=== PATIENT | female | born 1940 | race Caucasian/White ===

== ENCOUNTER 2019-02-13 14:31 | Inpatient (IN) | payer OTHER ==
[2019-02-13] VITALS (15 sets, daily range): BP systolic 78–167; BP diastolic 31–85
[~2019-02-13] VITALS: Ht 154.9 cm; Wt 44.1 kg
[2019-02-13 15:18] LABS: HEMOGLOBIN 11.5 gm/dL (12.0-15.0); MCHC 34.9 g/dL (28.0-37.0); PLATELET COUNT 280 thou/uL (150-400); RBC 3.83 mil/uL (4.20-5.00); RDW 12.8 % (10.5-14.5); WBC 20.6 thou/uL (4.0-11.0)
[2019-02-13 15:19] LABS: URINE BILIRUBIN NEGATIVE (Negative); URINE BLOOD 3+ (Negative); URINE CLARITY CLEAR; URINE COLOR YELLOW; URINE GLUCOSE-RANDOM* NEGATIVE (Negative); URINE KETONES TRACE (Negative); URINE LEUKOCYTES-REFLEX TRACE (Negative); URINE NITRITE-REFLEX NEGATIVE (Negative); URINE PROTEIN (DIPSTICK) 2+ (Negative); URINE SPECIFIC GRAVITY 1.025 (1.005-1.035)
[2019-02-13 15:28] LABS: BACTERIA-REFLEX >30 Many /HPF (None Seen); CASTS None Seen /LPF (None Seen); CRYSTALS None Seen /LPF (None Seen); SQUAMOUS 0-3 Few /LPF (0-3); URINE WBC-REFLEX 6-15 Few /HPF (0-5)
[2019-02-13 15:28] LABS: ANION GAP 14 mmol/L (7-16); BUN 47 mg/dL (7-18); CALCIUM 9.7 mg/dL (8.5-10.1); CHLORIDE 87 mmol/L (98-107); CO2 21 mmol/L (21-32); CREATININE 1.6 mg/dL (0.6-1.0); GLUCOSE 155 mg/dL (74-106); POTASSIUM 3.5 mmol/L (3.5-5.1); SODIUM 122 mmol/L (136-145)
[2019-02-13 15:36] LABS: TROPONIN-I <0.06 ng/mL (<0.06)
[2019-02-13 15:37] LABS: ABSOLUTE NEUTROPHILS 19.4 thou/uL (1.4-8.2); PLATELET ESTIMATE NORMAL
[2019-02-13 16:10] LABS: BE(vivo) -3.3 mmol/L (-2 to +3); HCO3 18.9 mmol/L (22.0-26.0); PCO2 26.3 mmHg (35.0-45.0); PO2 73.7 mmHg (80.0-100.0); pH 7.474 (7.360-7.450); sO2 95.9 % (92.0-98.0)
[2019-02-13 19:18] LABS: APTT 31.5 Seconds (24.5-32.8); PROTIME 10.1 Seconds (9.3-11.4)
[2019-02-13 19:19] LABS: ALBUMIN 3.4 g/dL (3.4-5.0); DIRECT BILIRUBIN 0.2 mg/dL (<0.1-0.3); TOTAL BILIRUBIN 0.7 mg/dL (<0.1-1.0); TOTAL PROTEIN 6.6 g/dL (6.4-8.2)
--- NOTE | 2019-02-13 19:19 | NUR ---
1821 IV ETOMIDATE/SUCCS GIVEN [address] GIRON ET TUBE 7.0, 24 @ TEETH 12FR OG PLACED 60 @ TEETH
[2019-02-13 20:10] LABS: BE(vivo) -12.4 mmol/L (-2 to +3); HCO3 14.2 mmol/L (22.0-26.0); PO2 143.6 mmHg (80.0-100.0); sO2 98.4 % (92.0-98.0)
[2019-02-13 20:11] LABS: pH 7.227 (7.360-7.450)
--- NOTE | 2019-02-13 20:20 | NUR ---
ADMIT NOTE: Pt admitted to ICU room 246 at [address] of head done. Pt intubated with 7.0 ET tube, 24 cm @ lip, vent settings Tv 450, 40% FiO2, AC 14 and peep 5. ABG's done on arrival, critical results called to Dr. Florian at 2015 and orders recieved to increase AC to 16. Pt sedated, pupils 3 and brisk. Soft wrist restraints in place bilaterally. Per report pt was brought into the ED very confused, aggitated and combative. OG @ 62 cm to LIS with dark coffee colored drainage. Same drainage also noted from Hi-Lo tube. Monitor sinus rhythm. Torres patent with adequate urine output.
[2019-02-13 21:23] LABS: AMP/METHAMP Negative (Negative); BARBITURATES Negative (Negative); BENZODIAZEPINES Negative (Negative); COCAINE Negative (Negative); METHADONE Negative (Negative); OPIATES Negative (Negative); PCP Negative (Negative)
[2019-02-14] VITALS (37 sets, daily range): BP systolic 73–136; BP diastolic 27–67
--- NOTE | 2019-02-14 05:46 | NUR ---
Pt has remained stable overnight. Low BP is Propofol related. Propofol titrated down to 8 mcg/kg/min. O2 sat remains 98-100% on FiO2 40%. Urine output adequate. On sedation vacation pt is able to open eyes spontaneously, ELAM but not to command, able to raise head and neck off pillow. Monitor remains sinus rhythm. Urine output > 30 cc/hr. Skin integrity remains intact.
[2019-02-14 06:28] LABS: ALBUMIN 2.2 g/dL (3.4-5.0); TOTAL BILIRUBIN 0.3 mg/dL (<0.1-1.0); TOTAL PROTEIN 4.8 g/dL (6.4-8.2)
[2019-02-14 06:30] LABS: CALCIUM 7.4 mg/dL (8.5-10.1)
[2019-02-14 06:32] LABS: POTASSIUM 2.2 mmol/L (3.5-5.1)
[2019-02-14 07:15] LABS: BE(vivo) -3.6 mmol/L (-2 to +3); HCO3 20.1 mmol/L (22.0-26.0); PCO2 31.8 mmHg (35.0-45.0); PO2 170.3 mmHg (80.0-100.0); pH 7.419 (7.360-7.450); sO2 99.2 % (92.0-98.0)
--- NOTE | 2019-02-14 08:54 | EKG ---
[address] [address] ELECTROCARDIOGRAM REPORT Name: CHUCKY WILSON Room #: 246-P ADM IN M.R.#: [id number] ������������������ Admission: 02/13/19 ������������������ Attend Phys: Nathaniel Jessica MD Discharge: ������������������ Date of : 44 Report #: [id number] ����������������������������������������������������������������� [id number] THIS REPORT FOR: //name// [facility] ED Test Date: 2019-02-13 Test Time: 17:11:00 Pat Name: CHUCKY WILSON Department: Room: 246 Gender: F Development Engineer: jltano : 1940 Requested By: Javi Blake Order Number: [id number] MD: Kirit Sher Measurements Intervals [place] Rate: 107 P: 37 ME: 188 QRS: 11 QRSD: 95 T: 82 QT: 332 QTc: 443 Interpretive Statements Sinus tachycardia Otherwise no significant abnormality Baseline wander in lead(s) V2 No previous ECG available for comparison Electronically Signed On 02-14-2019 8:53:57 CDT by Kirit Sher [email or web address] ��������������������������������������������� <ELECTRONICALLY SIGNED> ���������������������������������������� By: Kirit Sher MD, [facility] ��������������������������������������������� 02/14/19 0853 10 10 Kirit Sher MD, [facility] /EPI
--- NOTE | 2019-02-14 08:57 | NUR ---
0730- IN.--VW 0857-REPEAT PCXR DONE.--VW
[2019-02-14 09:44] LABS: ABSOLUTE NEUTROPHILS 10.6 thou/uL (1.4-8.2); BASOPHILS 0.3 % (0.0-2.0); EOSINOPHILS 1.1 % (0.0-3.0); HEMATOCRIT 28.8 % (37.0-47.0); HEMOGLOBIN 9.6 gm/dL (12.0-15.0); LYMPHOCYTES 3.2 % (24.0-44.0); MCHC 33.5 g/dL (28.0-37.0); MCV 89.5 fL (80.0-100.0); PLATELET COUNT 213 thou/uL (150-400); POLYS 87.4 % (36.0-66.0); RBC 3.22 mil/uL (4.20-5.00); RDW 13.1 % (10.5-14.5); WBC 12.1 thou/uL (4.0-11.0)
[2019-02-14 09:53] LABS: APTT 26.1 Seconds (24.5-32.8); FIBRINOGEN 547.9 mg/dL (210-360); PROTIME 10.5 Seconds (9.3-11.4)
--- NOTE | 2019-02-14 12:46 | NUR ---
1130-TO ARIANNA LOVETT I.R. W I.R.CREW,FULLY MONITORED.HOB REMAINS FLAT BUT TAKEN OUT OF HALLE.--VW
[2019-02-14 13:19] LABS: CSF COLOR SLIGHTLY PINK; VOLUME 12 ml
[2019-02-14 13:20] LABS: CSF CLARITY CLEAR
[2019-02-14 13:25] LABS: CSF GLUCOSE 63 mg/dL (40-70); CSF PROTEIN 122 mg/dL (15-45)
[2019-02-14 13:47] LABS: CSF RBC 841 /mm3; CSF WBC 2 /mm3 (0-10)
--- NOTE | 2019-02-14 15:45 | NUR ---
1330-BACK FROM PROCEDURES.--VW 1500-IV THERAPY IN.--VW 1550-PAGE TO IV THERAPY RE:PCXR RESULT.--VW
--- NOTE | 2019-02-14 16:18 | NUR ---
INITIAL ASSESSMENT: PAULA reviewed chart and spoke with nursing and attending physician. Pt was brought in by EMS after being found down in her home by a neighbor, Kylah. Pt is currently intubated and sedated. PAULA spoke with pt's son, Chaparro ([phone]) via phone. Introduced role of PAULA. Chaparro lives in [place] and his brother, Dmitri, lives in [place]. Chaparro states that his relationship with pt has been estranged for the past 10 years. Pt with hx of OCD. 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 Per Chaparro, pt left the employer on bad terms and then had a mental breakdown. Pt has poor living conditions per Chaparro, and pt is unable to allow anyone into her home to clean or to help her. Pt has never completed DPOA ppwk. Pt's son is unaware of pt's financial situation. Pt does have about 10 rental homes. Pt's neighbor visits pt daily. Chaparro is unsure of pt's physical ability prior to admission. He will contact Kylah to obtain more info and find out the condition of pt's home. Chaparro will be flying to this weekend and will be avialable to assist as needed with discharge planning. PAULA is following to assist as needed.
--- NOTE | 2019-02-14 17:36 | NUR ---
CONSULTED TO PLACE A PICC FOR A PATIENT IN ICU, SEDATED AND UNABLE TO CONSENT. NO FAMILY OR DPOA. DR. KIM WROTE FOR MEDICAL NECESSITY. THE RIGHT UPPER ARM BASILIC WAS WIDLEY PATENT. A #5F TRIPLE LUMEN POWER PICC WAS PLACED AFTER A BEDSIDE TIMEOUT WAS COMPLETED. LINE TRIMMED TO 34CM AND ADVANCED WITHOUT DIFFICULTY- A STAT CHEST XRAY SHOWS LINE IN THE RIGHT JUGULAR AND MALPOSITIONED. UNABLE TO POWER FLUSH TO REPOSITION LINE. THE LEFT UPPER ARM BASILIC WAS WIDLEY PATENT. A #5F TRIPLE LUMEN POWER PICC WAS PLACED PER HOSPITAL POLICY TO REPLACE MALPOSITIONED LINE. LINE WAS TRIMMED TO 38CM AND ADVANCED WITHOUT DIFFICULTY. A STAT CHEST XRAY SHOWS LINE IN SVC AND RELEASED FOR USE. THE RIGHT MALPOSITIONED LINE WAS REMOVED AND PRESSURE HELP FOR 10MN
[2019-02-14 18:48] LABS: MAGNESIUM 2.5 mg/dL (1.8-2.4)
[2019-02-14 18:50] LABS: POTASSIUM 2.4 mmol/L (3.5-5.1)
--- NOTE | 2019-02-14 20:33 | NUR ---
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
[2019-02-15] VITALS (47 sets, daily range): BP systolic 66–169; BP diastolic 35–85
[2019-02-15 05:29] LABS: HEMOGLOBIN 8.3 gm/dL (12.0-15.0); MCHC 34.5 g/dL (28.0-37.0); PLATELET COUNT 196 thou/uL (150-400); RBC 2.76 mil/uL (4.20-5.00); RDW 13.1 % (10.5-14.5); WBC 8.3 thou/uL (4.0-11.0)
[2019-02-15 06:02] LABS: ALBUMIN 1.8 g/dL (3.4-5.0); CALCIUM 8.1 mg/dL (8.5-10.1); POTASSIUM 3.3 mmol/L (3.5-5.1); TOTAL BILIRUBIN 0.2 mg/dL (<0.1-1.0); TOTAL PROTEIN 4.8 g/dL (6.4-8.2)
[2019-02-15 08:24] LABS: ABSOLUTE NEUTROPHILS 6.4 thou/uL (1.4-8.2)
--- NOTE | 2019-02-15 09:04 | NUR ---
Recommend consider start enteral nutrition of Vital High Protein at 25ml/hr and goal of 45ml/hr. Defer fluid/water flushes to physician.
--- NOTE | 2019-02-15 09:30 | NUR ---
Pt taken to radiology via bed for CT/CTA of head and neck. Propofol gtt continued during the procedure. Pt calm and tolerated well. Returned to the ICU. RT present for the transport to and from radiology.
--- NOTE | 2019-02-15 14:30 | NUR ---
Pt remains light
--- NOTE | 2019-02-15 15:00 | NUR ---
Pt remains lightly sedated with Propofol. Pt tranported to MRI for MRI of head. Maintained on the portable vent for the procedure by RT. Returned to ICU following the test.
--- NOTE | 2019-02-15 15:49 | NUR ---
SW reviewed chart and spoke with attending physician. Pt remains intubated and sedated. Pt on IV abx. Per nursing, pt's son to be in town on Monday. SW left voice message for pt's son, Chaparro, to provide update. No weekend discharge planned. Pt will need therapy evals when extubated and able to participate. PAULA is following to assist as needed with discharge planning.
--- NOTE | 2019-02-15 17:30 | NUR ---
Contacted Dr Jessica regarding test results from today. Dr Jessica will review the results and make any necessary orders.
--- NOTE | 2019-02-15 19:00 | NUR ---
Report given to RN assuming care. Awaiting dose of Plavis to arrive from pharmacy. Have discussed with pharmacist and guitar repair technician. Pt is resting quietly. Son called today and will travel from [place] on Monday to visit with his Mom.
[2019-02-16] VITALS (36 sets, daily range): BP systolic 93–166; BP diastolic 48–88
--- NOTE | 2019-02-16 01:08 | NUR ---
PATIENT IS SEDATED WITH MEDICATION DRIP. PATIENT HAS SPONTANEOUS EYE OPENING. PUPILS ARE EQUAL AND REACTIVE, REFLEXES INTACT. PATIENT IS INTUBATED ON THE VENT. PENDING HEAD CT TODAY. NEUROLOGY CONSULTED. PATIENT HAS NOT HAD A BM. PATIENT IS NPO. TUBE FEED STARTED THIS SHIFT PER DIETARY VIA OG TUBE. PATIENT TOLERATING TUBE FEED NO RESIDUALS NOTED THIS SHIFT. PATIENT HAS A SHINE WITH GOOD OUT PUT PATIENT IS NSR ON TELE. BP HAS BEEN STABLE. PATIENT IS 100% ON VENT TV 450 FIO2 30% AC 12 PEEP 5. PATIENT IS Q2TURN. RESTING COMFORTABLY. PATIENT ABLE TO ANSWER "YES AND NO" QUESTIONS. PATIENT DENIES PAIN. PATIENT IS PROGRESSING TO GOALS. C.
[2019-02-16 04:44] LABS: ABSOLUTE NEUTROPHILS 4.1 thou/uL (1.4-8.2); BASOPHILS 0.4 % (0.0-2.0); EOSINOPHILS 5.8 % (0.0-3.0); HEMATOCRIT 23.2 % (37.0-47.0); LYMPHOCYTES 8.2 % (24.0-44.0); MCH 30.3 pg (26.0-34.0); MCHC 34.5 g/dL (28.0-37.0); MCV 87.8 fL (80.0-100.0); MONOCYTES 10.6 % (1.0-8.0); PLATELET COUNT 193 thou/uL (150-400); RBC 2.64 mil/uL (4.20-5.00); RDW 13.3 % (10.5-14.5); WBC 5.5 thou/uL (4.0-11.0)
[2019-02-16 04:55] LABS: CALCIUM 7.9 mg/dL (8.5-10.1); CREATININE 0.9 mg/dL (0.6-1.0); POTASSIUM 3.1 mmol/L (3.5-5.1)
[2019-02-16 10:04] LABS: BE(vivo) -0.9 mmol/L (-2 to +3); HCO3 22.1 mmol/L (22.0-26.0); PCO2 30.1 mmHg (35.0-45.0); PO2 132.9 mmHg (80.0-100.0); pH 7.483 (7.360-7.450); sO2 98.9 % (92.0-98.0)
--- NOTE | 2019-02-16 12:47 | NUR ---
ASSUMED CARE OF PT AT 0700 THIS SHIFT. PT HAS BEEN FOLLOWING COMMANDS, HAS DENIED ANY PAIN THIS SHIFT. PT IS STILL INTUBATED AND SEDATED, HOWEVER WAKES EASILY AND ABLE TO NOD HEAD YES OR NO TO QUESTIONS. C-PAP TRIAL TODAY. PT IS CURRENTLY RESTING COMFORTABLY IN ROOM.
[2019-02-17] VITALS (46 sets, daily range): BP systolic 101–182; BP diastolic 50–108
[2019-02-17 05:19] LABS: BE(vivo) 0.4 mmol/L (-2 to +3); HCO3 24.1 mmol/L (22.0-26.0); PCO2 34.8 mmHg (35.0-45.0); PO2 117.4 mmHg (80.0-100.0); pH 7.458 (7.360-7.450); sO2 98.5 % (92.0-98.0)
[2019-02-17 05:39] LABS: ABSOLUTE NEUTROPHILS 3.4 thou/uL (1.4-8.2); BASOPHILS 0.6 % (0.0-2.0); EOSINOPHILS 5.7 % (0.0-3.0); HEMATOCRIT 23.4 % (37.0-47.0); LYMPHOCYTES 13.3 % (24.0-44.0); MCH 29.8 pg (26.0-34.0); MCV 87.8 fL (80.0-100.0); MONOCYTES 10.2 % (1.0-8.0); PLATELET COUNT 188 thou/uL (150-400); POLYS 70.2 % (36.0-66.0); RBC 2.67 mil/uL (4.20-5.00); RDW 13.6 % (10.5-14.5); WBC 4.8 thou/uL (4.0-11.0)
[2019-02-17 05:57] LABS: ALBUMIN 1.8 g/dL (3.4-5.0); ANION GAP 9 mmol/L (7-16); BUN 20 mg/dL (7-18); CALCIUM 7.7 mg/dL (8.5-10.1); CHLORIDE 110 mmol/L (98-107); CO2 26 mmol/L (21-32); CREATININE 0.7 mg/dL (0.6-1.0); GLUCOSE 145 mg/dL (74-106); POTASSIUM 3.1 mmol/L (3.5-5.1); SGOT 15 U/L (15-37); SGPT 23 U/L (30-65); SODIUM 145 mmol/L (136-145); TOTAL BILIRUBIN < 0.1 mg/dL (<0.1-1.0); TOTAL PROTEIN 4.8 g/dL (6.4-8.2)
--- NOTE | 2019-02-17 06:41 | NUR ---
No changes or events over night. Monitor remains sinus rhythm. Potassium being replaced per protocol.
[2019-02-17 10:43] LABS: BE(vivo) 1.7 mmol/L (-2 to +3); HCO3 25.6 mmol/L (22.0-26.0); PCO2 37.1 mmHg (35.0-45.0); PO2 129.6 mmHg (80.0-100.0); pH 7.456 (7.360-7.450); sO2 98.7 % (92.0-98.0)
--- NOTE | 2019-02-17 19:48 | NUR ---
Per Spencer RT checking on pt. RT reported that she had more inspiratory wheezes and placed pt on face mask at 10L. Dr. Florian paged and return call back to talk to RT and RN. RN received orders for solumedrol 40mg IVP BID. pt labored breathning with inspiration but o2sat 96% and higher. continue to monitor.
[2019-02-17 21:00] LABS: BE(vivo) 0.5 mmol/L (-2 to +3); HCO3 25.3 mmol/L (22.0-26.0); PCO2 41.6 mmHg (35.0-45.0); PO2 80.4 mmHg (80.0-100.0); pH 7.402 (7.360-7.450); sO2 95.9 % (92.0-98.0)
[2019-02-18] VITALS (33 sets, daily range): BP systolic 93–175; BP diastolic 59–98
[2019-02-18 05:42] LABS: HEMATOCRIT 27.5 % (37.0-47.0); HEMOGLOBIN 9.5 gm/dL (12.0-15.0); MCHC 34.4 g/dL (28.0-37.0); MCV 87.2 fL (80.0-100.0); RBC 3.16 mil/uL (4.20-5.00); RDW 13.5 % (10.5-14.5); WBC 6.8 thou/uL (4.0-11.0)
[2019-02-18 06:01] LABS: CALCIUM 7.8 mg/dL (8.5-10.1); CREATININE 0.6 mg/dL (0.6-1.0); POTASSIUM 3.3 mmol/L (3.5-5.1)
--- NOTE | 2019-02-18 11:08 | 2DMMODE ---
[facility] [place] [address] 2 D/M-MODE ECHOCARDIOGRAM Name: CHUCKY WILSON Room #: 246-P ADM IN M.R.#: [id number] ������������� Admission: 02/13/19 ������������� Attend Phys: Nathaniel Jessica MD Discharge: ��� ������������� ��� Date of : 44 Date of Service: 02/18/19 1108 �� Report #: [id number] �������� ��������������������������������������������[id number] THIS REPORT FOR: //name// APPROVED REPORT Study performed: 02/18/2019 09:14:32 EXAM: Comprehensive 2D, Doppler, and color-flow Echocardiogram Patient Location: ICU Room #: [facility] Status: routine BSA: 1.37 HR: 89 bpm BP: 157/88 mmHg Rhythm: NSR Other Information Study Quality: Adequate Indications Dyspnea Hypertension/HDD 2D Dimensions IVC: 16.00 mm Volumes Left Atrial Volume (Systole) LA ESV Index: 20.00 mL/m2 Tricuspid Valve PA Pressure: 31.00 mmHg Left Ventricle The left ventricle is normal size. There is normal LV segmental wall motion. There is normal left ventricular wall thickness. The left ventricular systolic function is normal. The left ventricular ejection fraction is within the normal range. LVEF is 60-65%. Grade I - abnormal relaxation pattern. Right Ventricle The right ventricle is normal size. The right ventricular systolic function is normal. [facility] [address] [place] [address] 2 D/M-MODE ECHOCARDIOGRAM Name: CHUCKY WILSON Room #: 246-P ADM IN M.R.#: [id number] ������������� Admission: 02/13/19 ������������� Attend Phys: Nathaniel Jessica MD Discharge: ��� ������������� ��� Date of : 44 Date of Service: 02/18/19 1108 �� Report #: [id number] �������� ��������������������������������������������[id number] The left atrium size is normal. The right atrium size is normal. Aortic Valve The aortic valve is normal in structure. Trace to mild aortic regurgitation. There is no aortic valvular stenosis. Mitral Valve The mitral valve is normal in structure. Mild mitral regurgitation. No evidence of mitral valve stenosis. Tricuspid Valve The tricuspid valve is normal in structure. There is trace to mild tricuspid regurgitation. Estimated PAP 31 mmHg There is mild pulmonary hypertension. Pulmonic Valve The pulmonary valve is normal in structure. There is no pulmonic valvular regurgitation. Great Vessels The aortic root is normal in size. IVC is normal in size and collapses >50% with inspiration. <Conclusion> The left ventricle is normal size. LVEF is 60-65%. The left atrium size is normal. The aortic valve is normal in structure. Trace to mild aortic regurgitation. The mitral valve is normal in structure. Mild mitral regurgitation. The tricuspid valve is normal in structure. There is trace to mild tricuspid regurgitation. Estimated PAP 31 mmHg There is mild pulmonary hypertension. The pulmonary valve is normal in structure. ��������������������������������������������� <ELECTRONICALLY SIGNED> ���������������������������������������� By: Alebr Huang MD ��������������������������������������������� 02/18/19 1108 1108 1108 Alber Huang MD /INF
--- NOTE | 2019-02-18 13:58 | NUR ---
PAULA reviewed chart and spoke with nursing and attending physician. Pt was extubated yesterday and is tolerating O2 via NC. Therapies ordered to evaluate pt for discharge needs. PAULA met with pt's son, Chaparro, at bedside to discuss discharge plan. Pt was asleep during time of SW visit. Pt's son is in town from [place] until tomorrow. Pt's son had questions about completing DPOA ppwk. PAULA explained that [facility] can provide the Healthcare DPOA document, but cannot provide assistance with financial DPOA ppwk. Pt's son's cousin is an commonwealth attorney and is bringing in DPOA ppwk. Pt's son requests notary services. PAULA discussed with Director of Case Mgmt, who says that staff is not able to notarize financial documents. Director of Case Mgmt spoke with pt's son to explain and to ask commonwealth attorney to bring in a notary. Awaiting therapy evals at this time. PAULA provided in-network SNF list for pt and son to review. Will need insurance authorization for post-acute placement. PAULA is following to assist as needed with discharge planning.
[2019-02-18 16:33] LABS: MAGNESIUM 2.8 mg/dL (1.8-2.4); POTASSIUM 3.7 mmol/L (3.5-5.1)
--- NOTE | 2019-02-18 19:16 | NUR ---
ASSUMED CARE @ 0700 02/18/19, PT ASSESSMENTS AND VSS COMPLETE PER ICU PROTOCOL. SPEECH EVALUATION PERFORMED TODAY, PUREED DIET ORDERED. SON, ENE @ BEDSIDE TODAY, EVERYTIME RN WENT INTO THE ROOM, SON WAS CONSTANTLY TALKING TO PT ABOUT SIGNING FINANCIAL DOCUMENTS. I REFUSED TO WITNESS ANY DOCUMENTS WHEN THE NOTARY WAS AT HER BEDSIDE BECAUSE I DID NOT FEEL COMFORTABLY WITNESSING.
[2019-02-19] VITALS (24 sets, daily range): BP systolic 99–182; BP diastolic 58–97
--- NOTE | 2019-02-19 05:06 | NUR ---
BP elevated, gave hydralazine as order.
[2019-02-19 05:11] LABS: HEMATOCRIT 29.9 % (37.0-47.0); HEMOGLOBIN 10.1 gm/dL (12.0-15.0); MCH 29.8 pg (26.0-34.0); MCHC 33.7 g/dL (28.0-37.0); MCV 88.2 fL (80.0-100.0); RBC 3.39 mil/uL (4.20-5.00); RDW 13.3 % (10.5-14.5); WBC 10.9 thou/uL (4.0-11.0)
[2019-02-19 05:26] LABS: CALCIUM 8.5 mg/dL (8.5-10.1); CREATININE 0.7 mg/dL (0.6-1.0)
[2019-02-19 09:08] LABS: CHOLESTEROL 270 mg/dL (<200); HDL CHOLESTEROL 28 mg/dL (>40); LDL CHOLESTEROL 222 mg/dL (<100); TC:HDL 9.6 Ratio (Not establshd); TRIGLYCERIDE 104 mg/dL (<150); VLDL 21 mg/dL (<40)
--- NOTE | 2019-02-19 16:29 | NUR ---
PAULA reviewed chart and spoke with nursing and attending physician. Pt remains in ICU. PAULA met with pt and son, Chaparro, at bedside to discuss discharge plan. Reviewed SNF list with pt and son. [facility] is not in-network with pt's insurance. Pt's son requests referrals to be sent to [facility]. SW explained process for referral and discharge. Pt's son is leaving [facility] this evening, and will be back in next week. Pt's son states that he did get the DPOA ppwk signed and notarized yesterday. Pt's son will email SW copy of paperwork to place on pt's chart and send to accepting facility. Per medical record, psych consult ordered today to evaluate pt's competency. Pt's son requests to be contacted by psych at time of evaluation. SW notified psychiatrist of request. Referral faxed to [facility]. Will need insurance authorization when pt is ready for discharge. Pt may transfer out of ICU tomorrow. PAULA is following to assist as needed with discharge planning.
--- NOTE | 2019-02-19 17:16 | NUR ---
PT IS ALERT AND ORIENTED X4. LUNGS ARE DIMINISHED. ON ROOM AIR . BLOOD PRESSURE WAS HIGH. PT APPEARS ANXIOUS. AFTER SON WAS VISITING TODAY. VERY COEERCIVE IN PT FINANCES. AND MONEY. SINUS RHYTHM TO SINUS TACH ON THE MONITOR. PT RESTING NOW. ON HONEY THICKEN LIQUIDS TODAY. SHINE TO DD WITH CRISTIAN CABRERA PRESENT. PT STABLE WILL CONTINUE TO MONITOR AND ASSESS. MANAGER COMPLIANCE INVOLVED WITH PT STAUTS AT THIS TIME WITH HOSPITALIZATION.
--- NOTE | 2019-02-19 18:56 | NUR ---
IS HERE TO EVALUATE PT.
--- NOTE | 2019-02-19 19:43 | NUR ---
SPOKE WITH [facility] PHARMACIST REGARDING OF PT'S CURRENT MEDICATIONS. THEY WILL FAX CURRENT MEDS TO ME SHORTLY.
[2019-02-20] VITALS (22 sets, daily range): BP systolic 118–176; BP diastolic 64–105
[2019-02-20 05:15] LABS: HEMATOCRIT 29.8 % (37.0-47.0); MCH 29.4 pg (26.0-34.0); MCHC 33.6 g/dL (28.0-37.0); MCV 87.4 fL (80.0-100.0); RBC 3.41 mil/uL (4.20-5.00); RDW 13.3 % (10.5-14.5); WBC 9.8 thou/uL (4.0-11.0)
[2019-02-20 05:27] LABS: CALCIUM 8.7 mg/dL (8.5-10.1); CREATININE 0.6 mg/dL (0.6-1.0); MAGNESIUM 1.7 mg/dL (1.8-2.4); POTASSIUM 3.6 mmol/L (3.5-5.1)
--- NOTE | 2019-02-20 06:37 | NUR ---
Pt remains stable in this shift. No event tonight. Magnesium level is low this am. I am replacing it per protocol. She is continue progressing toward POCs.
--- NOTE | 2019-02-20 10:24 | NUR ---
Referal faxed to [facility] in couple of days. DP called and left vm with Mily at [facility] to see if she received referral and check on bed availability.
--- NOTE | 2019-02-20 16:46 | NUR ---
PAULA reviewed chart and spoke with attending physician. Pt is progressing towards goals for discharge. Pt will need to go to post-acute care when discharged. [facility] able [facility] pt. Awaiting input from [facility] at this time. [facility] did an onsite evaluation earlier today. Will need insurance authorization for pt to go to post-acute. PAULA spoke with pt's son via phone to provide update. Pt's son to discuss with his brother this evening. PAULA is following to assist as needed with discharge planning.
--- NOTE | 2019-02-20 18:10 | NUR ---
PATIENT WILL HAVE A LOOP DEVICE PLACED IN AM. WILL BE DISCHARGED IN AM TO HOME AFTER PROCEDURE. HE DENIES PAIN. RESPIRATIONS ARE NON LABORED. PLEASANT WITH CARE. DOES NOT SEEM TO BE IN PAIN AT THIS TIME. WILL CONT WITH PLAN OF CARE.
--- NOTE | 2019-02-21 03:46 | NUR ---
patient is alert and oriented. patient is very forgetful. patient showered. patient deneis pain. patient has a long hx of arthritis and has sever joint deformity. patient is on pureed and honey thick liquids. patient is nsr on tele. patient is resting comfortably in bed. wcm. patient is room air. patient is prgressing to goals. plan is to finish iv antibiotics and narcisa steriods.
[2019-02-21 04:20] VITALS: BP 141/79
[2019-02-21 05:43] LABS: HEMATOCRIT 29.6 % (37.0-47.0); HEMOGLOBIN 9.8 gm/dL (12.0-15.0); MCH 29.3 pg (26.0-34.0); MCV 88.8 fL (80.0-100.0); RBC 3.33 mil/uL (4.20-5.00); RDW 13.1 % (10.5-14.5); WBC 14.4 thou/uL (4.0-11.0)
[2019-02-21 06:18] LABS: CALCIUM 8.4 mg/dL (8.5-10.1); CREATININE 0.7 mg/dL (0.6-1.0); MAGNESIUM 1.8 mg/dL (1.8-2.4); POTASSIUM 3.5 mmol/L (3.5-5.1)
[2019-02-21 12:15] VITALS: BP 132/80
--- NOTE | 2019-02-21 13:19 | NUR ---
PAULA reviewed chart and spoke with nursing and attending physician. Pt was transferred to from ICU and is progressing towards goals for discharge. PAULA spoke with pt's son, Chaparro, via phone regarding post-acute needs. Pt's son has chosen [facility]. PAULA updated [facility] liaison. PAULA requested updated therapy notes to sent to [facility], in order to get insurance authorization. Pt to move to room 364 from 448 today. PAULA is following to assist as needed with discharge planning.
[2019-02-21 16:48] VITALS: BP 119/63
[2019-02-21 20:30] VITALS: BP 131/88
[2019-02-22 04:49] VITALS: BP 140/79
--- NOTE | 2019-02-22 05:20 | NUR ---
PT MAKING SLOW PROGRESS TOWARDS GOALS. PT UP X1-2 ASSIST TO TOILET. PT ABLE TO BEAR HER OWN WEIGHT BUT HAD WEAKNESS WITH TRANSFERING FROM LYING TO SITTING AND SITTING WITH STANDING.
[2019-02-22 07:31] VITALS: BP 148/99
[2019-02-22] MEDS ORDERED: CLOPIDOGREL75 MG PER TUBE (12:11)
[2019-02-22] MEDS ORDERED: PANTOPRAZOLE SO40 M1 PO (12:11)
[2019-02-22] MEDS ORDERED: LIPITOR40 MG PO (12:11)
[2019-02-22] MEDS ORDERED: ADULT LOW DOSE81 MG PO (12:11)
[2019-02-22] MEDS ORDERED: CEFUROXIME500 MG PO (12:11)
[2019-02-22] MEDS ORDERED: IPRAT-ALBUT 0.5-3 ML INH (12:11)
[2019-02-22] MEDS ORDERED: LOPRESSOR50 PO (12:11)
[2019-02-22] MEDS ORDERED: PREDNISONE 20 M20 MG PO (12:11)
[2019-02-22] MEDS ORDERED: FELODIPINE 5 MG5 M1 PER TUBE (12:11)
--- NOTE | 2019-02-22 14:02 | NUR ---
DISCHARGE PLANNING. ANTICIPATED DISCHARGE TODAY. PATIENT DISCHARGING TO [facility]. INSURANCE AUTH PENDING. OT NOTES FAXED TO [facility]MISS[facility], FOR INSURANCE AUTH PROCESS. PT ASSESSEMENT PENDING. DISCHARGE ORDERS AND SUMMARY FAXED TO [facility], VERIFIED RECEIVED. CHART COPY COMPLETED PER BLOOD BANK WORKER. AWAITING RESPONSE ON INSURANCE AUTH FROM [facility]. [facility] TO FACILITATE TRANSPORTATION ONCE OBTAINED. FOLLOWING TO ASSIST. UNIT SW AWARE.
--- NOTE | 2019-02-22 16:34 | NUR ---
PAULA reviewed chart and spoke with nursing and attending physician. Awaiting insurance authorization at this time for pt to go to [facility]. PAULA spoke with pt's son, Chaparro, via phone to provide update. PAULA explained that pt could d/c over the weekend if insurance authorization is obtained. Pt's son agreeable. DPOA ppwk placed on pt's chart and faxed to [facility]. Will need chart copy. Discharge orders/summary will need to be faxed when pt is discharged. PAULA is following to assist as needed with discharge planning. [facility]--
[2019-02-22 16:39] VITALS: BP 114/73
--- NOTE | 2019-02-22 18:01 | NUR ---
ASSUMED CARE OF PATIENT AT 0700. PATIENT ALERT AND ORIENTED. PATIENT 2 PERSON ASSIST. PATIENT DIET CHANGED TO MECHINICALLY ALTERED W/ THIN LIQUIDS AFTER SWALLOW STUDY TODAY. PATIENT HAS TOLERATED IT WELL. PATIENT DISCHARGE PENDING INSURANCE VERIFICATION.
[2019-02-22 19:41] VITALS: BP 153/84
[2019-02-23 04:09] VITALS: BP 161/84
[2019-02-23 07:36] VITALS: BP 122/76
[2019-02-23 16:17] VITALS: BP 112/70
--- NOTE | 2019-02-23 20:01 | NUR ---
PATIENT ALERT AND ORIENTED AND SOMETIMES DEMANDING OF STAFF. PER ANDREW AT [facility], PATIENT INSURANCE APPROVED BUT NO BED AVAILABLE AND WILL CHECK AGAIN TOMORROW. PATIENT STATES SHE LIKES IT HERE. RICHI IN INDICATED NEED TO FAX DISCHARGE ORDERS TO [facility] WHEN BED AVAILABLE AND CALL REPORT. IF [facility] CAN'T TRANSPORT THEN ARRANGE W/C TRANSPORT WITH [facility].
[2019-02-23 21:02] VITALS: BP 110/68
[2019-02-24 05:08] VITALS: BP 147/87
[2019-02-24 08:20] VITALS: BP 141/96
[2019-02-24 16:39] VITALS: BP 141/84
--- NOTE | 2019-02-24 20:21 | NUR ---
Assumed patient care at 0700. a/o x4. stb assisted to bsc. progressing towards poc goals.
[2019-02-24 21:00] VITALS: BP 137/76
[2019-02-25 05:30] VITALS: BP 131/77
--- NOTE | 2019-02-25 06:00 | NUR ---
PT HAS SLEPT AT INTERVALS TONIGHT. AWAKE AN ALERT. DENIES PAIN. UP TO BEDSIDE COMMODE. WILL CONT TO [facility].
[2019-02-25 07:57] VITALS: BP 174/95
[2019-02-25 09:26] VITALS: BP 174/95
--- NOTE | 2019-02-25 10:38 | NUR ---
DISCHARGE NOTE: SW notified by [facility] visitor services coordinator, that they did obtain insurance authorization and they can accept pt today. SW contacted attending physician. Pt is medically stable for discharge. Chart copy will need to be updated. mechanical planner to fax discharge orders/summary to [facility] and notify pt's son, Chaparro. Nursing to call report. No additional SW needs identified at this time, but is available to assist should needs arise.
--- NOTE | 2019-02-25 12:17 | NUR ---
Patient to discharge today to [facility]. DC paperwork faxed to facility. Amber notified of dc and dp awaiting transportation time, wc van no oxygen. DP called Kerry/clerical secretary 3w for her to update cc and, dp faxed dc paperwork to 3w to include in cc. DP will follow up on transportation time.
--- NOTE | 2019-02-25 14:51 | NUR ---
PATIENT ALERT AND ORIENTED AND HAS DENIED PAIN. VITALS STABLE. TOLERATING DIET W/O NAUSEA. UP WITH STANDBY ASSIST TO BSC AND VOIDING W/O DIFFICULTY. ORDERS IN CHART TO DC TO [facility]. REPORT CALLED TO JAILENE AT [facility]. WALLET WITH MONEY OBTAINED FROM SECURITY AND GIVEN BACK TO THE PATIENT. PATIENT SCHEDULED TO BE PICKED UP AT 1500. PICC LINE DC'D. AWAITING TRANSPORTATION.
== END 2019-02-25 16:05 | DRG 871 ==
LOC: ER 14:31 → ICU 18:44 → 4S 18:44 → EROBS 18:44 → ICU 19:54 → 4S 02-20 18:05 → 3W 02-21 13:43
PROVIDERS: Emergency Medicine; Internal Medicine; Nurse Practitioner Adult Health; Pediatrics; ADMIT Hospitalist
PROC: 5A1945Z Respiratory Ventilation, 24-96 Consecutive Hours (ICD-10-PCS; principal; 2019-02-13)
PROC: 0BH17EZ Insertion of Endotracheal Airway into Trachea, Via Natural or Artificial Opening (ICD-10-PCS; principal; 2019-02-13)
PROC: 02HV33Z Insertion of Infusion Device into Superior Vena Cava, Percutaneous Approach (ICD-10-PCS; 2019-02-14)
PROC: 009U3ZX Drainage of Spinal Canal, Percutaneous Approach, Diagnostic (ICD-10-PCS; 2019-02-18)
PROC: B01B1ZZ Fluoroscopy of Spinal Cord using Low Osmolar Contrast (ICD-10-PCS; 2019-02-18)
DX: A41.9 Sepsis, unspecified organism (principal); E43 Unspecified severe protein-calorie malnutrition; J96.01 Acute respiratory failure with hypoxia; G92 Toxic encephalopathy; N39.0 Urinary tract infection, site not specified; N17.9 Acute kidney failure, unspecified; E87.1 Hypo-osmolality and hyponatremia; Z68.1 Body mass index [BMI] 19.9 or less, adult; J44.0 Chronic obstructive pulmonary disease with (acute) lower respiratory infection; J44.1 Chronic obstructive pulmonary disease with (acute) exacerbation; E87.6 Hypokalemia; R65.20 Severe sepsis without septic shock; D64.9 Anemia, unspecified; E87.8 Other disorders of electrolyte and fluid balance, not elsewhere classified; I73.9 Peripheral vascular disease, unspecified; I65.21 Occlusion and stenosis of right carotid artery; S01.01XA Laceration without foreign body of scalp, initial encounter; K20.9 Esophagitis, unspecified; B96.20 Unspecified Escherichia coli [E. coli] as the cause of diseases classified elsewhere; M06.9 Rheumatoid arthritis, unspecified; E78.5 Hyperlipidemia, unspecified; F03.90 Unspecified dementia, unspecified severity, without behavioral disturbance, psychotic disturbance, mood disturbance, and anxiety; I08.3 Combined rheumatic disorders of mitral, aortic and tricuspid valves; W18.39XA Other fall on same level, initial encounter; Y93.89 Activity, other specified; Y92.89 Other specified places as the place of occurrence of the external cause; Y99.8 Other external cause status
CPT/HCPCS: 10078; 10100; 10879; 27000

== ENCOUNTER → 2019-12-09 | Outpatient (CLI) | payer OTHER ==
[~2019-12-09] MED LIST: ADULT LOW DOSE81 MG PO; CEFUROXIME500 MG PO; CLOPIDOGREL75 MG PER TUBE; FELODIPINE 5 MG5 M1 PER TUBE; IPRAT-ALBUT 0.5-3 ML INH; LIPITOR40 MG PO; LOPRESSOR50 PO; PANTOPRAZOLE SO40 M1 PO; PREDNISONE 20 M20 MG PO
== END ==
LOC: SJCVCIMAG 09-13 09:19
PROVIDERS: ATTEND Internal Medicine Cardiovascular Disease
DX: I65.23 Occlusion and stenosis of bilateral carotid arteries (principal); M79.601 Pain in right arm; R94.31 Abnormal electrocardiogram [ECG] [EKG]; I77.1 Stricture of artery; E78.00 Pure hypercholesterolemia, unspecified; D64.9 Anemia, unspecified; I10 Essential (primary) hypertension; E78.5 Hyperlipidemia, unspecified; Z79.899 Other long term (current) drug therapy; Z79.82 Long term (current) use of aspirin

== ENCOUNTER → 2020-12-18 | Outpatient (CLI) | payer OTHER ==
[~2020-12-18] VITALS: Ht 149.9 cm; Wt 40.8 kg
[~2020-12-18] MED LIST changes: +CARVEDILOL12.5 MG PO; +CHILDREN'S ASPI81 M1 PO; +LEVO-T100 MCG PO; +LISINOPRIL5 MG PO; +MOBIC7.5 MG PO; +PROTONIX40 M2 PO; +SINGULAIR 10 MG10 MG PO
--- NOTE | 2020-12-21 17:36 | P ---
[facility] [place] [address] PROCEDURE REPORT Name: CHUCKY WILSON Room #: REG FRANCISCO J Kit#: [id number] Admission: 12/18/20 Attend Phys: Chris Carrizales Discharge: Date of : 44 Report #: [id number] THIS REPORT FOR: cc: Walter Bland MD, David A. MD McElhinney, Christian C. MD ~ cc: Walter Bland MD DATE OF SERVICE: 12/18/2020 PROCEDURE PERFORMED: Incomplete colonoscopy due to poor prep. HISTORY OF PRESENT ILLNESS: The patient is a 80-year-old female who presents today for a 5-year followup. She has a family history of colon cancer in her mother. Last colonoscopy was performed on 07/01/2015. At that time, sigmoid diverticulosis was noted as well as large internal hemorrhoids and small external hemorrhoids. There is question if the patient was able to complete a full prep last evening. Plan is for colonoscopy. DESCRIPTION OF PROCEDURE: The risks and benefits of the procedure were explained to the patient, those risks including but not limited to bleeding, perforation and the risk of sedation. She understood these risks and gave informed consent. Sedation was given using propofol per anesthesia. Next, a digital rectal exam showed external hemorrhoids, otherwise normal. Next, using a pediatric Olympus colonoscope, the scope was placed in the patient's anus and advanced under direct vision into the distal descending colon, at which point, it was obvious prep was poor throughout the area. I was unable to proceed any further. The areas that were visualized, showed sigmoid diverticulosis. No evidence of inflammation. No evidence of bleeding. At this point, the scope was withdrawn and the procedure terminated. The patient tolerated the procedure well. IMPRESSION: 1. Poor prep, incomplete colonoscopy. 2. Sigmoid diverticulosis. 3. Hemorrhoids. RECOMMENDATIONS: Reschedule the near future. We will discuss prep again with the patient and her family. Thank you for allowing me to participate in her care. <ELECTRONICALLY SIGNED> By: Chris Moran MD 12/21/20 1736 0725 2101 Chris Moran MD /nt
== END | disposition home or self-care (01) ==
LOC: GI 06:36
PROVIDERS: ATTEND Specialist
DX: Z12.11 Encounter for screening for malignant neoplasm of colon (principal); Z80.0 Family history of malignant neoplasm of digestive organs; K57.30 Diverticulosis of large intestine without perforation or abscess without bleeding; K64.4 Residual hemorrhoidal skin tags; I10 Essential (primary) hypertension; E78.00 Pure hypercholesterolemia, unspecified; E03.9 Hypothyroidism, unspecified; K21.9 Gastro-esophageal reflux disease without esophagitis; Z98.890 Other specified postprocedural states; Z79.899 Other long term (current) drug therapy; Z85.828 Personal history of other malignant neoplasm of skin
CPT/HCPCS: 62110; 62900

== ENCOUNTER → 2021-03-10 | Outpatient (CLI) | payer OTHER | LOC: CV 12-08 09:14 → LAB 08:30 | PROVIDERS: ATTEND Student in an Organized Health Care Education/Training Program | DX: Z01.812 Encounter for preprocedural laboratory examination (principal); Z20.822 Contact with and (suspected) exposure to COVID-19 ==